=== PATIENT | female | born 1945 | race Caucasian/White ===

== ENCOUNTER 2020-04-26 21:45 | Emergency (ER) | payer MEDICARE, SELFPAY ==
[2020-04-26 19:05] VITALS: BP 166/87; PULSE 97; RESP 17; TEMP 36.6; O2SAT 96; BMI 43.2
--- NOTE | 2020-04-26 19:43 | CTR_ITS ---
PROCEDURE INFORMATION: Exam: CT Cervical Spine Without Contrast Exam date and time: 04/26/2020 7:53 PM Age: 74 years old Clinical indication: Injury or trauma; Initial encounter; Blunt trauma; Patient HX: Fall from standing hitting cabinet lac to crown denies loc TECHNIQUE: Imaging protocol: Computed tomography images of the cervical spine without contrast. Radiation optimization: All CT scans at this facility use at least one of these dose optimization techniques: automated exposure control; mA and/or kV adjustment per patient size (includes targeted exams where dose is matched to clinical indication); or iterative reconstruction. COMPARISON: No relevant prior studies available. RADIATION DOSE METRICS: Total DLP (mGy-cm): 700.29 FINDINGS: Vertebrae: No acute fracture. Normal alignment. Severe diffuse degenerative changes are noted with disc space narrowing, endplate osteophytes and sclerosis throughout the cervical spine. Discs/Spinal canal/Neural foramina: No significant disc protrusion. No severe spinal canal stenosis. No significant neural foraminal narrowing. Soft tissues: Unremarkable. Lungs: Lung apices are normal. CT/CT cervical spin wo con* [id number] IMPRESSION: No acute findings. Radiation Dose CTDIVOL = (mGy): DLP = 700.29 (mGy-cm)
--- NOTE | 2020-04-26 19:43 | CTR_ITS ---
PROCEDURE INFORMATION: Exam: CT Head Without Contrast Exam date and time: 04/26/2020 7:53 PM Age: 74 years old Clinical indication: Injury or trauma; Initial encounter; Laceration; Without loss of consciousness; Without residual foreign body; Scalp; Patient HX: Fall from standing hitting cabinet lac to crown denies loc TECHNIQUE: Imaging protocol: Computed tomography of the head without contrast. Radiation optimization: All CT scans at this facility use at least one of these dose optimization techniques: automated exposure control; mA and/or kV adjustment per patient size (includes targeted exams where dose is matched to clinical indication); or iterative reconstruction. COMPARISON: No relevant prior studies available. RADIATION DOSE METRICS: Total DLP (mGy-cm): 862.03 FINDINGS: Brain: There is volume loss and periventricular low density compatible with chronic small vessel disease changes. There is no acute hemorrhage, edema or mass effect. There are small bifrontal benign hygromas. Ventricles: Normal. No ventriculomegaly. Bones/joints: There is a large area of benign calcification along the right frontal bone compatible with a calcified meningioma or asymmetric hyperostosis frontalis interna measuring 4.3 x 1.3 cm in size. Sinuses: Visualized sinuses are unremarkable. No fluid levels. Mastoid air cells: Visualized mastoid air cells are well aerated. Soft tissues: There is a scalp laceration near the vertex. CT/CT head wo con* [id number] IMPRESSION: 1. No acute intracranial abnormality. 2. Mature asymmetric calcification along the right frontal lobe suspected to be a calcified meningioma or less likely asymmetric hyperostosis frontalis interna. Radiation Dose CTDIVOL = (mGy): DLP = 862.03 (mGy-cm)
--- NOTE | 2020-04-26 19:57 | ED_ITS ---
HPI - Wound/Laceration General: Chief Complaint: Wound/Laceration Stated Complaint: head lac History of Present Illness: HPI narrative: 74-year-old female who bent over in her kitchen to get something, lost her balance, and fell. She hit her head, apparently on doors on the way down. She sustained a lip laceration and abrasion/laceration to her scalp. She complains of mild headache, and some neck pain. She did not lose consciousness. No vomiting following. Her mental status is normal. She never had chest pain or shortness of breath, etc. Onset (ago): hour(s) Location: scalp and face Place: home Context: accidental Associated symptoms: Reports pain; Denies fever(s), nausea, numbness or vomiting Review of Systems Const: Denies: fever(s) Eyes: Denies: change in vision or blurry vision ENMT: Reports: swelling of lips/tongue; Denies: bleeding gums, dental pain, change in hearing or epistaxis Card: Denies: chest pain, palpitations or irregular heart rhythm Resp: Denies: dyspnea, productive cough, non-productive cough or wheezing GI: Denies: nausea or vomiting : Denies: dysuria or hematuria Musc: Reports: neck pain; Denies: back pain Skin/Breast: Denies: rash, pruritus or erythema Neuro: Reports: headache(s); Denies: dizziness, vertigo, confusion or seizure-like activity Psych: Denies: anxiety Physical Exam Const: GENERAL APPEARANCE: well developed ORIENTATION/CONSCIOUSNESS: Yes oriented to person, Yes oriented to place and Yes oriented to time HENMT: COMMON NORMALS: normocephalic, external ears normal and Normal external nose present HEAD & SCALP: normocephalic; no scalp tenderness FACE & SINUS: normal facial exam NOSE: Normal external nose present and No nasal discharge present EXTERNAL EAR: Yes external ears normal MOUTH: tongue normal TEETH & GINGIVA: no abnormal tooth and associated gingiva Eye: COMMON NORMALS: Equal, round and reactive pupils present, EOMs intact bilaterally and conjunctivae normal EYELID: eyelids normal CONJUNCTIVA: Yes conjunctivae normal PUPIL: Yes Equal, round and reactive pupils present Neck/C-Spine: COMMON NORMALS: full ROM GENERAL: No tracheal deviation CERVICAL SPINE: Yes normal cervical lordosis and Yes Cervical spine tenderness Chest: COMMONS NORMALS: normal inspection of the chest CHEST: No tenderness Resp: COMMON NORMALS: clear to auscultation bilaterally EFFORT & INSPECTION: No tachypneic, No respiratory distress, No retractions, No uses accessory muscles and No tracheal deviation AUSCULTATION: clear to auscultation bilaterally, no rhonchi, no wheezes and lung sounds not diminished Cardio: COMMON NORMALS: regular rate and regular rhythm RATE: regular rate RHYTHM: regular rhythm HEART SOUNDS: no murmurs PERIPHERAL PULSES: radial pulses present GI: INSPECTION: No abdominal distension AUSCULTATION: No Hyperactive bowel sounds present and No Hypoactive bowel sounds present PALPATION: No Guarding due to palpation present (GI) and No Rigid due to palpation PERCUSSION: no dullness to percussion and no tympanic to percussion Neuro: SENSORIUM/ORIENTATION: Yes oriented to person, Yes oriented to place and Yes oriented to time Psych: COMMON NORMALS: mental status grossly normal Skin: NARRATIVE SKIN EXAM: Facial exam reveals a 2 cm laceration to the lip involving the vermilion border. There is also an abrasion/laceration to the scalp. Procedures Laceration Laceration 1: Site: lip Size (cm): 2 Description: linear and involves nicky border Depth: simple, single layer Local Anesthetic: lidocaine 1% and with epi Amount of anesthesia used (mL): 3 Pre-repair: irrigated extensively Skin layer closed with: nylon Size (cm): 6-0 Number of sutures: 2 Technique: simple, interrupted Laceration 2: Site: scalp Description: linear Depth: simple, single layer Pre-repair: irrigated extensively Skin layer closed with: other (skin adhesive) Course Vital Signs: Vital signs: Vital Signs Temperature 97.9 F 04/26/20 19:05 Pulse Rate 97 04/26/20 19:05 Respiratory Rate 16 04/26/20 22:08 Blood Pressure 149/93 04/26/20 22:08 Pulse Oximetry 96 04/26/20 19:05 MDM - Wound/Laceration MDM Narrative: Medical decision making narrative: Lacerations repaired. No residual symptoms. She tolerated well. Discharge Plan Discharge Patient Disposition: Home Clinical Impression: Laceration Contusion of face, scalp and neck Qualifiers: Encounter type: initial encounter Qualified Code(s): S00.83XA - Contusion of other part of head, initial encounter Condition: Stable Prescriptions: [place] 5-325 mg tablet 1 tab PO Q8H PRN (Reason: pain) Qty: 10 RF: 0 Discharge Orders: Discharge Order (Routine); Ordered 04/26/20 Ordered By: David Yuan Referrals: Jose Armando Kent DO [Primary Care Provider] - 4-7 days Discharge Diet: Advance as tolerated Discharge Activity: Increase activity as tolerated Patient Instructions: Scalp Laceration, Laceration (ED) Activity Restrictions/Additional Instructions: Sutures out in 5 to 7 days. Keep dry for 24 hours, then may wash with soap and running water. Do not soak or scrub. Return for any problems. Discharge Date/Time: 04/26/20 22:09 Coding Level of Care Code ED [employer] Officer for Chg Fwd Exam Comprehensive
[2020-04-26 20:06] VITALS: BP 167/88
--- NOTE | 2020-04-26 20:10 | PC.NURSE ---
pt presents with laceration to upper medial scalp and upper medial lip
[2020-04-26] MEDS: lidocaine-prilocaine cream 5 gm 1 APPLIC TOPICAL (20:46)
[2020-04-26 21:25] VITALS: RESP 18
[2020-04-26 22:08] VITALS: BP 149/93; RESP 16
[2020-04-26] MEDS: oxyCODONE-APAP 5-325 mg Tablet 2 TAB PO (22:08)
== END 2020-04-26 22:09 | disposition home or self-care (01) ==
LOC: ER 21:50
PROVIDERS: Emergency Provider Emergency Medicine; PCP Internal Medicine
DX: S01.01XA Laceration without foreign body of scalp, initial encounter (principal); S01.511A Laceration without foreign body of lip, initial encounter; S00.83XA Contusion of other part of head, initial encounter; W19.XXXA Unspecified fall, initial encounter
CPT/HCPCS: 12001; 12011; 12345; 70450; 72125; 99281; 99283

== ENCOUNTER 2022-10-12 08:01 | Outpatient (CLI) | payer MEDICARE, OTHER, SELFPAY ==
--- NOTE | 2022-10-12 08:39 | USCV_ITS ---
Nicole Medrano Age: 76 Gender: F : 1945 Exam Date: 10/12/2022 08:51 Ordering Phys: Jose Armando Kent DO Technologist: CT Exam Location: [facility] [place]_ Indication: lle pain PROCEDURES: Venous duplex imaging was performed in only the left lower extremity. On the left side, the common femoral, superficial femoral, profunda femoral, popliteal, posterior tibial, greater saphenous veins, and the peroneal trunk were identified and interrogated in the standard fashion. FINDINGS: Normal 2-D Doppler and augmentation and compressibility throughout the lower extremity venous structures. Additional imaging through the proximal calf veins also reveals no thrombus. Limited evaluation of the greater saphenous vein is patent with no thrombus. CONCLUSIONS No DVT left lower extremity. Dr. Carmelina Prado DO (Electronically Signed) Final Date: 12 October 2022 09:28 S
== END 2022-10-12 08:02 | disposition home or self-care (01) ==
PROVIDERS: PCP Internal Medicine; Visit Provider Internal Medicine
DX: M79.605 Pain in left leg (principal)
CPT/HCPCS: 93971

== ENCOUNTER → 2022-10-27 12:57 | Outpatient (BNVA) | payer MEDICARE, OTHER, SELFPAY | PROVIDERS: PCP Internal Medicine; Visit Provider Thoracic Surgery (Cardiothoracic Vascular Surgery) | DX: I96 Gangrene, not elsewhere classified (principal); L97.822 Non-pressure chronic ulcer of other part of left lower leg with fat layer exposed | CPT/HCPCS: 97597; 97598; 99203; A6021; A6212; A6252 ==

== ENCOUNTER → 2022-10-29 17:17 | Outpatient (BNVA) | payer MEDICARE, OTHER, SELFPAY | PROVIDERS: PCP Internal Medicine; Visit Provider Thoracic Surgery (Cardiothoracic Vascular Surgery) | DX: I96 Gangrene, not elsewhere classified (principal); I87.2 Venous insufficiency (chronic) (peripheral); L97.822 Non-pressure chronic ulcer of other part of left lower leg with fat layer exposed | CPT/HCPCS: 97605; A6021; A6252 ==

== ENCOUNTER → 2022-11-03 11:42 | Outpatient (BNVA) | payer MEDICARE, OTHER, SELFPAY | PROVIDERS: PCP Internal Medicine; Visit Provider Thoracic Surgery (Cardiothoracic Vascular Surgery) | DX: I96 Gangrene, not elsewhere classified (principal); I87.2 Venous insufficiency (chronic) (peripheral); L97.822 Non-pressure chronic ulcer of other part of left lower leg with fat layer exposed | CPT/HCPCS: 97597; 97598 ==

== ENCOUNTER → 2022-11-10 09:38 | Outpatient (BNVA) | payer MEDICARE, OTHER, SELFPAY | PROVIDERS: PCP Internal Medicine; Visit Provider Thoracic Surgery (Cardiothoracic Vascular Surgery) | DX: Z09 Encounter for follow-up examination after completed treatment for conditions other than malignant neoplasm (principal) | CPT/HCPCS: 99212 ==

== ENCOUNTER → 2022-11-17 10:35 | Outpatient (BNVA) | payer MEDICARE, OTHER, SELFPAY | PROVIDERS: PCP Internal Medicine; Visit Provider Nurse Practitioner Family | DX: Z09 Encounter for follow-up examination after completed treatment for conditions other than malignant neoplasm (principal) | CPT/HCPCS: 99212 ==

== ENCOUNTER 2022-11-24 11:04 | Outpatient (CLI) | payer MEDICARE, OTHER, SELFPAY ==
--- NOTE | 2022-11-24 11:30 | MM_ITS ---
WS: [id number] BILATERAL SCREENING DIGITAL TOMOSYNTHESIS MAMMOGRAM WITH CAD HISTORY: SCREENING COMPARISON: 07/31/2018 and 04/12/2017 Bilateral CC and MLO views with tomosynthesis and synthetic mammography submitted. Computer aided det ection analyzed. Breast composition: There are scattered areas of fibroglandular density. No suspicious masses, microc alcifications or architectural distortion. Benign calcifications in each breast. MM/[place] [id number] IMPRESSION: BI-RADS: 2-Benign FOLLOW UP: 1 Year Follow-up
== END 2022-11-24 11:05 | disposition home or self-care (01) ==
LOC: RAD 11:09
PROVIDERS: PCP Internal Medicine; Visit Provider Internal Medicine
DX: Z12.31 Encounter for screening mammogram for malignant neoplasm of breast (principal)
CPT/HCPCS: 77063; 77067

== ENCOUNTER 2022-12-06 12:24 | Outpatient (CLI) | payer MEDICARE, OTHER, SELFPAY ==
--- NOTE | 2022-12-06 12:00 | USCV_ITS ---
Nicole Medrano Age: 77 Gender: F : 1945 Exam Date: 12/06/2022 13:08 Ordering Phys: Eder Mauro MD (Andy) ([email or web address] [email or web address] Technologist: CT Exam Location: [place] Indication: HISTORY: PROCEDURES: FINDINGS: The veins were found to be easily compressible with spontaneous blood flow. Non pulsatile flow pattern. No significant venous reflux CONCLUSIONS 1. No evidence of DVT in the above-mentioned identifiable veins. 2. No significant venous reflux 3. Normal caliber superficial veins bilaterally, at a depth of more than 1 cm, from the surface Dr Lisette Munguia MD [facility] (Electronically Signed) Final Date: 06 December 2022 18:19 S
== END 2022-12-06 12:25 | disposition home or self-care (01) ==
PROVIDERS: PCP Internal Medicine; Visit Provider Thoracic Surgery (Cardiothoracic Vascular Surgery)
DX: M79.89 Other specified soft tissue disorders (principal)
CPT/HCPCS: 93970